=== PATIENT | female | born 1980 | race Caucasian/White ===

== ENCOUNTER 2019-12-25 16:02 | Emergency (ER) | payer OTHER ==
[2019-12-25 16:07] VITALS: RESP 18
[2019-12-25 17:44] LABS: Appearance,Urine Clear (Clear); Bacteria,Urine Occasional /hpf; Bilirubin,Urine Negative (Negative); Blood,Urine Negative (Negative); Color,Urine Yellow; Glucose,Urine (UA) Negative (Negative); Ketones,Urine Negative (Negative); Leukocyte Esterase,Urine Large (Negative); Mucus,Urine Few /hpf; Nitrite,Urine Negative (Negative); Protein,Urine Trace (Negative); RBC,Urine 1 /hpf (0-5); Specific Gravity,Urine 1.013 (1.001-1.035); Squamous Epithelial Cell,Urine 5 /hpf (0-4); WBC,Urine 3 /hpf (0-5)
--- NOTE | 2019-12-25 18:08 | ED ---
Fever HPI - General Chief Complaint: Fever Stated Complaint: fever Time Seen by Provider: 12/25/19 16:46 Source: patient Mode of arrival: ambulatory Limitations: no limitations - History of Present Illness Initial Comments: Patient is a 39-year-old female, currently 34 weeks , presenting to the emergency Department with complaints of a fever as well as diarrhea x 1 day. Patient states she noticed her fever last night that ran 99 and then 100. Patient did take Tylenol which the fever did respond. Patient states she woke up this morning and started having diarrhea. Patient did call her VOCATIONAL HORTICULTURE INSTRUCTOR who is out of [facility] and they recommended her coming into the ER to get tested for Covid. Patient denies any abdominal pain, vaginal discharge. Her has been uncomplicated thus far. She is . Patient denies any chest pain, shortness of breath, abdominal pain, dysuria. She has no other complaints at this time. Upon arrival to the ER, her vital signs are stable, afebrile. Patient did take Tylenol 2 hours prior to arrival. - Related Data Home Medications Medication Instructions Recorded Confirmed Albuterol Inhaler (Mhu) [Ventolin 2 puff INHALATION Q6HR PRN 05/14/14 05/14/14 Inhaler] Benzonatate [Tessalon Perle] 100 mg PO TID 05/14/14 05/14/14 Cyanocobalamin [Vitamin B-12] 500 mcg PO DAILY@1200 05/14/14 05/14/14 Dicyclomine [Bentyl] 20 mg PO QID 05/14/14 05/14/14 Doxycycline Hyclate 100 mg PO BID 05/14/14 05/14/14 HYDROcodone/APAP 7.5-325MG [[place] 1 each PO Q4H PRN 05/14/14 05/14/14 7.5] Hydrocodone/Acetaminophen [[place] 1 each PO Q6HR PRN 05/14/14 05/14/14 5-325] Hyoscyamine Sulfate [Levsin] 0.125 mg PO DAILY 05/14/14 05/14/14 LORazepam [Ativan] 1 mg PO TID PRN 05/14/14 05/14/14 Multivitamins, Thera [Multivitamin] 1 each PO DAILY@1200 05/14/14 05/14/14 Nystatin 100,000 Unit/ml Susp 5 ml PO QID 05/14/14 05/14/14 [Mycostatin Oral Susp] Ondansetron Odt [Zofran ODT] 4 mg PO Q8HR PRN 05/14/14 05/14/14 Potassium Chloride [Klor-Con 8] 8 meq PO DAILY 05/14/14 05/14/14 Prochlorperazine [Compazine] 10 mg PO Q8H 05/14/14 05/14/14 Ranitidine HCl [Zantac] 150 mg PO HS 05/14/14 05/14/14 predniSONE 10 mg PO DAILY 05/14/14 05/14/14 Previous Rx's Medication Instructions Recorded Hydrocodone/Acetaminophen [[place] 1 each PO Q4HR PRN #10 tab 05/14/14 5-325] Tamsulosin HCl [Flomax] 0.4 mg PO DAILY #10 cap 05/14/14 Cephalexin [Keflex] 500 mg PO BID 3 Days #6 cap 12/25/19 Allergies Allergy/AdvReac Type Severity Reaction Status Date / Time NSAIDS (Non-Steroidal Allergy Swelling Verified 12/25/19 16:07 Anti-Inflamma Review of Systems ROS Statement: Those systems with pertinent positive or pertinent negative responses have been documented in the HPI. ROS Other: All systems not noted in ROS Statement are negative. Past Medical History Additional Past Medical History / Comment(s): ulcerative colitis, chorn's History of Any Multi-Drug Resistant Organisms: None Reported Past Surgical History: Adenoidectomy, Section, Cholecystectomy, Tonsillectomy Past Psychological History: No Psychological Hx Reported Smoking Status: Current every day smoker Past Alcohol Use History: None Reported Past Drug Use History: None Reported General Exam - General Exam Comments Initial Comments: GENERAL: Well-appearing, well-nourished and in no acute distress. HEAD: Atraumatic, normocephalic. EYES: Pupils equal round and reactive to light, extraocular movements intact, sclera anicteric, conjunctiva are normal. ENT: TMs normal, nares patent, oropharynx clear without exudates. Moist mucous membranes. NECK: Normal range of motion, supple without lymphadenopathy or JVD. LUNGS: Breath sounds clear to auscultation bilaterally and equal. No wheezes rales or rhonchi. HEART: Regular rate and rhythm without murmurs, rubs or gallops. ABDOMEN: Soft, nontender, normoactive bowel sounds. No guarding, no rebound. : Deferred EXTREMITIES: Normal range of motion, no pitting or edema. No clubbing or cyanosis. NEUROLOGICAL: Cranial nerves II through XII grossly intact. Normal speech, normal gait. PSYCH: Normal mood, normal affect. SKIN: Warm, Dry, normal turgor, no rashes or lesions noted. Limitations: no limitations Course Vital Signs 12/25/19 12/25/19 16:05 18:30 Temperature 98.2 F 98.6 F Pulse Rate 102 H 94 Respiratory 18 18 Rate Blood Pressure 117/74 113/66 O2 Sat by Pulse 95 98 Oximetry Medical Decision Making - Medical Decision Making Patient is a 39-year-old female here for fever and diarrhea 1 day. She is 34 weeks , on-call. Thus far. Her exam is unremarkable. Patient's urine was tested and shows very mild bacteria. Patient was tested for Covid and is pending at this time. I discussed with patient her asymptomatic bacteremia and she'll be started on Keflex. Patient is agreement with this plan of care. She may continue with Tylenol as needed for fevers. Patient is stable for discharge and she is in agreement this plan of care. Return parameters were discussed with the patient she verbalized understanding. Case discussed with Dr. Ponce. - Lab Data Lab Results 12/25/19 Range/Units 17:18 Urine Color Yellow Urine Appearance Clear (Clear) Urine pH 7.0 (5.0-8.0) Ur Specific [place] 1.013 (1.001-1.035) Urine Protein Trace H (Negative) Urine Glucose (UA) Negative (Negative) Urine Ketones Negative (Negative) Urine Blood Negative (Negative) Urine Nitrite Negative (Negative) Urine Bilirubin Negative (Negative) Urine Urobilinogen 2.0 (<2.0) mg/dL Ur Leukocyte Esterase Large H (Negative) Urine RBC 1 (0-5) /hpf Urine WBC 3 (0-5) /hpf Ur Squamous Epith Cells 5 H (0-4) /hpf Urine Bacteria Occasional H (None) /hpf Urine Mucus Few H (None) /hpf Disposition Clinical Impression: Fever, Asymptomatic bacteriuria during Disposition: HOME SELF-CARE Condition: Stable Instructions (If sedation given, give patient instructions): Fever in Adults (ED) Additional Instructions: Please return to the Emergency Department if symptoms worsen or any other concerns. Take antibiotic as prescribed. Follow-up with VOCATIONAL HORTICULTURE INSTRUCTOR as necessary. Prescriptions: Cephalexin [Keflex] 500 mg PO BID 3 Days #6 cap Is patient prescribed a controlled substance at d/c from ED?: No Referrals: Charly Villasenor MD [Primary Care Provider] - 1-2 days
[2019-12-25 18:30] VITALS: BP 113/66; PULSE 94; TEMP 98.6
== END 2019-12-25 18:30 | disposition home or self-care (01) ==
LOC: EC 16:02
DX: O26.893 Other specified pregnancy related conditions, third trimester (principal); R82.71 Bacteriuria; O99.89 Other specified diseases and conditions complicating pregnancy, childbirth and the puerperium; R50.9 Fever, unspecified; R19.7 Diarrhea, unspecified; O99.333 Smoking (tobacco) complicating pregnancy, third trimester; F17.200 Nicotine dependence, unspecified, uncomplicated; Z3A.34 34 weeks gestation of pregnancy; Z20.828 Contact with and (suspected) exposure to other viral communicable diseases; Z79.51 Long term (current) use of inhaled steroids; Z79.899 Other long term (current) drug therapy; Z88.6 Allergy status to analgesic agent
CPT/HCPCS: 81001; 87635; 99283

== ENCOUNTER 2023-10-18 19:29 | Emergency (ER) | payer MEDICARE, OTHER ==
--- NOTE | 2023-10-18 20:09 | ED ---
General Adult HPI - General Chief complaint: Nausea/Vomiting/Diarrhea Stated complaint: abdominal pain Time Seen by Provider: 10/18/23 19:32 Source: patient Mode of arrival: EMS Limitations: no limitations - History of Present Illness Initial comments: 43-year-old female with a past medical history significant for Crohn's disease presenting to the ED with a chief complaint of nausea, vomiting, diarrhea onset 3 days ago. Also does note some associated generalized abdominal pain. Reports secondary to the symptoms she has been unable to take her usual medications. No blood in the stool. No changes in urinary habits. Associated chills but no fever. No changes in urinary habits. No chest pain or shortness of breath. No other complaints at this time. - Related Data Home Medications Medication Instructions Recorded Confirmed Albuterol Inhaler [Ventolin 2 puff INHALATION Q6HR PRN 05/14/14 05/14/14 Inhaler] Benzonatate [Tessalon Perle] 100 mg PO TID 05/14/14 05/14/14 Cyanocobalamin [Vitamin B-12] 500 mcg PO DAILY@1200 05/14/14 05/14/14 Dicyclomine [Bentyl] 20 mg PO QID 05/14/14 05/14/14 Doxycycline Hyclate 100 mg PO BID 05/14/14 05/14/14 HYDROcodone/APAP 7.5-325MG [[place] 1 each PO Q4H PRN 05/14/14 05/14/14 7.5] Hydrocodone/Acetaminophen [[place] 1 each PO Q6HR PRN 05/14/14 05/14/14 5-325] Hyoscyamine Sulfate [Levsin] 0.125 mg PO DAILY 05/14/14 05/14/14 LORazepam [Ativan] 1 mg PO TID PRN 05/14/14 05/14/14 Multivitamins, Thera [Multivitamin] 1 each PO DAILY@1200 05/14/14 05/14/14 Nystatin 100,000 Unit/ml Susp 5 ml PO QID 05/14/14 05/14/14 [Mycostatin Oral Susp] Ondansetron Odt [Zofran ODT] 4 mg PO Q8HR PRN 05/14/14 05/14/14 Potassium Chloride [Klor-Con 8] 8 meq PO DAILY 05/14/14 05/14/14 Prochlorperazine [Compazine] 10 mg PO Q8H 05/14/14 05/14/14 Ranitidine HCl [Zantac] 150 mg PO HS 05/14/14 05/14/14 predniSONE 10 mg PO DAILY 05/14/14 05/14/14 Previous Rx's Medication Instructions Recorded Hydrocodone/Acetaminophen [[place] 1 each PO Q4HR PRN #10 tab 05/14/14 5-325] Tamsulosin HCl [Flomax] 0.4 mg PO DAILY #10 cap 05/14/14 Cephalexin [Keflex] 500 mg PO BID 3 Days #6 cap 12/25/19 Allergies Allergy/AdvReac Type Severity Reaction Status Date / Time NSAIDS (Non-Steroidal Allergy Swelling Verified 10/18/23 19:36 Anti-Inflamma Review of Systems ROS Statement: Those systems with pertinent positive or pertinent negative responses have been documented in the HPI. ROS Other: All systems not noted in ROS Statement are negative. Past Medical History Additional Past Medical History / Comment(s): ulcerative colitis, chorn's History of Any Multi-Drug Resistant Organisms: None Reported Past Surgical History: Adenoidectomy, Section, Cholecystectomy, Tonsillectomy Past Psychological History: No Psychological Hx Reported Past Alcohol Use History: None Reported Past Drug Use History: None Reported General Exam Limitations: no limitations General appearance: alert, in no apparent distress Eye exam: Present: normal appearance Neck exam: Present: normal inspection Respiratory exam: Present: normal lung sounds bilaterally Cardiovascular Exam: Present: regular rate, normal rhythm GI/Abdominal exam: Present: soft (Diffuse abdominal tenderness to palpation. No rebound guarding or rigidity.) Back exam: Present: normal inspection Neurological exam: Present: alert, oriented X3 Skin exam: Present: warm, dry Course Vital Signs 10/18/23 19:35 Temperature 98.4 F Pulse Rate 76 Respiratory 18 Rate Blood Pressure 239/139 O2 Sat by Pulse 100 Oximetry Medical Decision Making - Medical Decision Making Was pt. sent in by a medical professional or institution (, PA, CALIBRATION SPECIALIST, urgent care, hospital, or care home...) When possible be specific @ -No Did you speak to anyone other than the patient for history (EMS, parent, family, police, friend...)? What history was obtained from this source @ -No Did you review nursing and triage notes (agree or disagree)? Why? @ -I reviewed and agree with nursing and triage notes Were old charts reviewed (outside hosp., previous admission, EMS record, old EKG, old radiological studies, urgent care reports/EKG's, care home records)? Report findings @ -No old charts were reviewed Differential Diagnosis (chest pain, altered mental status, abdominal pain women, abdominal pain men, vaginal bleeding, weakness, fever, dyspnea, syncope, headache, dizziness, GI bleed, back pain, seizure, CVA, palpatations, mental health, musculoskeletal)? @ -Differential Abdominal Pain Women: Appendicitis, Cholecystitis, diverticulosis, ischemic bowel, pancreatitis, hepatitis, UTI, gastroenteritis, AAA, incarcerated hernia, bowel obstruction, constipation, inflammatory bowel, hepatitis, peptic ulcer disease, splenic infarction, perforated viscus, vulvitis, ovarian torsion, PID, kidney stone, placenta abruption, this is not meant to be an all-inclusive list EKG interpreted by me (3pts min.). @ -None X-rays interpreted by me (1pt min.). @ -None done CT interpreted by me (1pt min.). @ -CT abdomen pelvis interpreted me showing pancolonic mild circumferential mu ral thickening without focal findings. Also prominent urinary bladder distention. U/S interpreted by me (1pt. min.). @ -None done What testing was considered but not performed or refused? (CT, X-rays, U/S, labs)? Why? @ -None What meds were considered but not given or refused? Why? @ -None Did you discuss the management of the patient with other professionals (professionals i.e. , PA, CALIBRATION SPECIALIST, lab, RT, psych nurse, oncology social work, gwot ia/ilo intelligence support, teacher, attendance officer, shoe caser)? Give summary @ -No Was smoking cessation discussed for >3mins.? @ -No Was critical care preformed (if so, how long)? @ -No Were there social determinants of health that impacted care today? How? (Homel essness, low income, unemployed, alcoholism, drug addiction, transportation, low edu. Level, literacy, decrease access to med. care, senior living, rehab)? @ -No Was there de-escalation of care discussed even if they declined (Discuss DNR or withdrawal of care, Hospice)? DNR status @ -No What co-morbidities impacted this encounter? (DM, HTN, Smoking, COPD, CAD, Cancer, CVA, ARF, Chemo, Hep., AIDS, mental health diagnosis, sleep apnea, morbid obesity)? @ -Chron's Was patient admitted / discharged? Hospital course, mention meds given and route, prescriptions, significant lab abnormalities, going to OR and other pertinent info. @ -Discharge 43-year-old female with past medical history significant for Crohn's presenting to the ED with complaints of nausea, vomiting, diarrhea, abdominal pain for the past 3 days. Reports secondary symptoms has been unable to tolerate her medications at home and reports she is also aware that of her Zofran. Laboratory studies reviewed. CBC is shows a elevated white blood cell count 13.9, elevated neutrophils at 11.6. Chemistry panel largely unremarkable. Troponin undetectable. UA shows no significant evidence of infection. CT did show pancolonic mild [id number] male thickening without focal findings. Also was a finding of cystic changes especially of the right ovary measuring 7 cm and left ovary measuring 3.5 cm. Discussed these findings with patient. She verbalized she will follow-up with her PEDIATRIC SURGEON. Patient provided analgesia and antiemetics here in the ED with significant improvement of symptoms. At this time vital signs stable afebrile. Discharged home in stable condition with prescriptions for Zofran. Discussed return precautions with patient who verbalized agreement. Undiagnosed new problem with uncertain prognosis? @ -No Drug Therapy requiring intensive monitoring for toxicity (Heparin, Nitro, Insulin, Cardizem)? @ -No Were any procedures done? @ -No Diagnosis/symptom? @ -Abdominal pain, N/V/D Acute, or Chronic, or Acute on Chronic? @ -Acute Uncomplicated (without systemic symptoms) or Complicated (systemic symptoms)? @ -Uncomplicated Side effects of treatment? @ -No Exacerbation, Progression, or Severe Exacerbation? @ -No Poses a threat to life or bodily function? How? (Chest pain, [place], [place], pneumonia, PE, COPD, DKA, ARF, appy, cholecystitis, CVA, Diverticulitis, Homicidal, Suicidal, threat to staff... and all critical care pts) @ -No - Lab Data Result diagrams: 10/18/23 20:08 10/18/23 20:08 Lab Results 03/07/24 03/07/24 03/07/24 Range/Units 19:30 20:08 20:08 WBC 13.9 H (3.8-10.6) k/uL RBC 5.01 (3.80-5.40) m/uL Hgb 15.8 (11.4-16.0) gm/dL Hct 46.1 H (34.0-46.0) % MCV 91.9 (80.0-100.0) fL MCH 31.5 (25.0-35.0) pg MCHC 34.2 (31.0-37.0) g/dL RDW 14.6 (11.5-15.5) % Plt Count 414 (150-450) k/uL MPV 8.1 Neutrophils % 83 % Lymphocytes % 8 % Monocytes % 5 % Eosinophils % 2 % Basophils % 1 % Neutrophils # 11.6 H (1.3-7.7) k/uL Lymphocytes # 1.0 (1.0-4.8) k/uL Monocytes # 0.7 (0-1.0) k/uL Eosinophils # 0.3 (0-0.7) k/uL Basophils # 0.1 (0-0.2) k/uL PT (10.0-12.5) sec INR (<1.2) APTT (22.0-30.0) sec Sodium 135 L (137-145) mmol/L Potassium 3.7 (3.5-5.1) mmol/L Chloride 110 H (98-107) mmol/L Carbon Dioxide 14 L (22-30) mmol/L Anion Gap 11 mmol/L BUN 9 (7-17) mg/dL Creatinine 0.39 L (0.52-1.04) mg/dL Est GFR (CKD-EPI)AfAm >90 (>60 ml/min/1.73 sqM) Est GFR (CKD-EPI)NonAf >90 (>60 ml/min/1.73 sqM) Glucose 116 H (74-99) mg/dL Calcium 9.1 (8.4-10.2) mg/dL Total Bilirubin 0.5 (0.2-1.3) mg/dL AST 31 (14-36) U/L ALT 25 (4-34) U/L Alkaline Phosphatase 79 (38-126) U/L Troponin I (0.000-0.034) ng/mL Total Protein 7.5 (6.3-8.2) g/dL Albumin 4.3 (3.5-5.0) g/dL Amylase 46 (30-110) U/L Lipase 28 (23-300) U/L Urine Color Colorless Urine Appearance Clear (Clear) Urine pH 7.0 (5.0-8.0) Ur Specific [place] 1.018 (1.001-1.035) Urine Protein Negative (Negative) Urine Glucose (UA) Negative (Negative) Urine Ketones Negative (Negative) Urine Blood Negative (Negative) Urine Nitrite Negative (Negative) Urine Bilirubin Negative (Negative) Urine Urobilinogen <2.0 (<2.0) mg/dL Ur Leukocyte Esterase Negative (Negative) Influenza Type A (PCR) (Not Detectd) Influenza Type B (PCR) (Not Detectd) RSV (PCR) (Not Detectd) SARS-CoV-2 (PCR) (Not Detectd) 10/18/23 10/18/23 10/18/23 Range/Units 20:08 20:08 21:05 WBC (3.8-10.6) k/uL RBC (3.80-5.40) m/uL Hgb (11.4-16.0) gm/dL Hct (34.0-46.0) % MCV (80.0-100.0) fL MCH (25.0-35.0) pg MCHC (31.0-37.0) g/dL RDW (11.5-15.5) % Plt Count (150-450) k/uL MPV Neutrophils % % Lymphocytes % % Monocytes % % Eosinophils % % Basophils % % Neutrophils # (1.3-7.7) k/uL Lymphocytes # (1.0-4.8) k/uL Monocytes # (0-1.0) k/uL Eosinophils # (0-0.7) k/uL Basophils # (0-0.2) k/uL PT 9.7 L (10.0-12.5) sec INR 0.9 (<1.2) APTT 20.8 L (22.0-30.0) sec Sodium (137-145) mmol/L Potassium (3.5-5.1) mmol/L Chloride (98-107) mmol/L Carbon Dioxide (22-30) mmol/L Anion Gap mmol/L BUN (7-17) mg/dL Creatinine (0.52-1.04) mg/dL Est GFR (CKD-EPI)AfAm (>60 ml/min/1.73 sqM) Est GFR (CKD-EPI)NonAf (>60 ml/min/1.73 sqM) Glucose (74-99) mg/dL Calcium (8.4-10.2) mg/dL Total Bilirubin (0.2-1.3) mg/dL AST (14-36) U/L ALT (4-34) U/L Alkaline Phosphatase (38-126) U/L Troponin I <0.012 (0.000-0.034) ng/mL Total Protein (6.3-8.2) g/dL Albumin (3.5-5.0) g/dL Amylase (30-110) U/L Lipase (23-300) U/L Urine Color Urine Appearance (Clear) Urine pH (5.0-8.0) Ur Specific [place] (1.001-1.035) Urine Protein (Negative) Urine Glucose (UA) (Negative) Urine Ketones (Negative) Urine Blood (Negative) Urine Nitrite (Negative) Urine Bilirubin (Negative) Urine Urobilinogen (<2.0) mg/dL Ur Leukocyte Esterase (Negative) Influenza Type A (PCR) Not Detected (Not Detectd) Influenza Type B (PCR) Not Detected (Not Detectd) RSV (PCR) Not Detected (Not Detectd) SARS-CoV-2 (PCR) Not Detected (Not Detectd) Disposition Clinical Impression: Abdominal pain Disposition: HOME SELF-CARE Condition: Good Instructions (If sedation given, give patient instructions): Acute Nausea and Vomiting (ED), Abdominal Pain (ED) Additional Instructions: Please return to the Emergency Department if symptoms worsen or any other concerns. Please follow-up with your PCP. Is patient prescribed a controlled substance at d/c from ED?: No Referrals: Charly Villasenor MD [Primary Care Provider] - 1-2 days Time of Disposition: 23:25
[2023-10-18] MEDS: ONDANSETRON 4 MG/2 ML VIAL IVP STA (20:24)
[2023-10-18] MEDS: SODIUM CHLORIDE 0.9% 1,000 ML IV STA (20:25)
[2023-10-18 20:30] VITALS: BP 239/139; PULSE 76; RESP 18; TEMP 98.4
[2023-10-18 20:37] LABS: ALT 25 U/L (4-34); AST 31 U/L (14-36); African American GFR (CKD) >90 (>60 ml/min/1.73 sqM); Albumin 4.3 g/dL (3.5-5.0); Alkaline Phosphatase 79 U/L (38-126); Amylase 46 U/L (30-110); Anion Gap 11 mmol/L; Blood Urea Nitrogen 9 mg/dL (7-17); Calcium 9.1 mg/dL (8.4-10.2); Carbon Dioxide 14 mmol/L (22-30); Chloride 110 mmol/L (98-107); Glucose 116 mg/dL (74-99); Lipase 28 U/L (23-300); Non-African American GFR(CKD) >90 (>60 ml/min/1.73 sqM); Potassium 3.7 mmol/L (3.5-5.1); Sodium 135 mmol/L (137-145); Total Bilirubin 0.5 mg/dL (0.2-1.3); Total Protein 7.5 g/dL (6.3-8.2)
[2023-10-18] MEDS: MORPHINE SULFATE 4 MG/ML SYRINGE IVP STA ×2 (20:39→23:41)
[2023-10-18 20:40] LABS: Basophils # (A) 0.1 k/uL (0-0.2); Basophils % (A) 1 %; Eosinophils # (A) 0.3 k/uL (0-0.7); Eosinophils % (A) 2 %; HCT 46.1 % (34.0-46.0); HGB 15.8 gm/dL (11.4-16.0); Lymphocytes % (A) 8 %; MCH 31.5 pg (25.0-35.0); MCHC 34.2 g/dL (31.0-37.0); MCV 91.9 fL (80.0-100.0); Mean Platelet Volume 8.1; Monocytes # (A) 0.7 k/uL (0-1.0); Monocytes % (A) 5 %; Neutrophils # (A) 11.6 k/uL (1.3-7.7); Neutrophils % (A) 83 %; Platelet Count 414 k/uL (150-450); RBC 5.01 m/uL (3.80-5.40); RDW 14.6 % (11.5-15.5); WBC 13.9 k/uL (3.8-10.6)
[2023-10-18 20:43] LABS: INR 0.9 (<1.2); Prothrombin Time 9.7 sec (10.0-12.5)
[2023-10-18 20:50] LABS: Partial Thromboplastin Time 20.8 sec (22.0-30.0)
--- NOTE | 2023-10-18 22:08 | CT ---
EXAMINATION TYPE: CT ABDOMEN PELVIS W CON DATE OF EXAM: 10/18/2023 HISTORY: lower abdominal pain, hx of chrohn's. CT DLP: 733.2mGycm Automated Exposure Control for Dose Reduction was Utilized. CONTRAST: CT scan of the abdomen and pelvis is performed with IV Contrast, patient injected with 100 ml mL of Isovue 300. COMPARISON: None on PACS. FINDINGS: LUNG BASES: No significant abnormality is appreciated. LIVER/GB: No significant abnormality is appreciated. PANCREAS: No significant abnormality is seen. SPLEEN: No significant abnormality is seen. ADRENALS: No significant abnormality is seen. KIDNEYS: No acute findings. BOWEL: Oral contrast opacifies the distal ileum and colon. The colon shows mild circumferential joel h mural thickening which may represent minimal inflammatory changes. No mesocolon or mesenteric infla mmatory/edematous changes. No small bowel bowel dilation. PERITONEAL CAVITY: No fluid or pneumoperitoneum. PELVIC VISCERA: The urinary bladder is mildly distended. Uterus is anteverted without flexion, with normal appearance. Right ovary shows cystic changes, measuring up to 7.0 cm. Left ovary shows cystic changes measuring u p to 3.5 cm. LYMPH NODES: No greater than 1cm abdominal or pelvic lymph nodes are appreciated. OSSEOUS STRUCTURES: No significant abnormality is seen. OTHER: No abdominal aortic aneurysm. No acute vascular process.. IMPRESSION: Pancolonic mild circumferential mural thickening without focal findings. Bilateral ovarian findings for which 2 week or 6 week follow-up pelvic Doppler ultrasound correlation is recommended, to ensure benignity. Prominent urinary bladder distention.
[2023-10-18] MEDS: DICYCLOMINE 20 MG TAB PO STA (22:44)
[2023-10-18 23:08] LABS: Appearance,Urine Clear (Clear); Bilirubin,Urine Negative (Negative); Blood,Urine Negative (Negative); Color,Urine Colorless; Glucose,Urine (UA) Negative (Negative); Ketones,Urine Negative (Negative); Leukocyte Esterase,Urine Negative (Negative); Nitrite,Urine Negative (Negative); Protein,Urine Negative (Negative); Specific Gravity,Urine 1.018 (1.001-1.035); Urobilinogen,Urine <2.0 mg/dL (<2.0)
[2023-10-18] MEDS: ONDANSETRON 4 MG ODT STARTER PACK 2 TAB BTL PO STA (23:41)
== END 2023-10-19 00:24 | disposition home or self-care (01) ==
LOC: EC 19:29
DX: K50.90 Crohn's disease, unspecified, without complications (principal); Z88.6 Allergy status to analgesic agent; Z79.52 Long term (current) use of systemic steroids; Z90.49 Acquired absence of other specified parts of digestive tract; Z20.822 Contact with and (suspected) exposure to COVID-19
CPT/HCPCS: 36415; 93005; 80053; 82150; 83690; 84484; 85025; 85610; 85730; 81003; 87636; 74177; 99285; 96374; 96375; 96376; 96361; J2270; J2405; S0119; Q9967

== ENCOUNTER 2024-06-10 22:22 | Emergency (ER) | payer OTHER ==
[2024-06-10 22:29] VITALS: TEMP 97.8
--- NOTE | 2024-06-10 22:40 | ED ---
Chest Pain HPI - General Chief Complaint: Chest Pain Stated Complaint: Chest Pain,Hypertension Time Seen by Provider: 06/10/24 22:37 Source: patient Mode of arrival: ambulatory - History of Present Illness Initial Comments: This patient is a 44-year-old woman who presents to have evaluation for chest pain. The symptoms started around 5 tonight. She was at rest. She has also had a little bit of nausea. Patient states she became concerned because her blood pressure has been high for some time. She states that her medication was adjusted but does not seem to be controlling this. MD Complaint: chest pain Onset/Timin -: hour(s) Onset: during rest Pain Location: substernal, left chest, right chest Pain Radiation: none Severity: mild Quality: heaviness Consistency: constant Improves With: nothing Worsens With: nothing Anginal Symptoms: nausea Treatments Prior to Arrival: none - Related Data Home Medications Medication Instructions Recorded Confirmed Dicyclomine [Bentyl] 10 mg PO BID 06/13/24 06/13/24 Mesalamine [Pentasa] 1 dose PO DIRECTED 06/13/24 06/13/24 Ondansetron [Zofran] 4 mg PO Q12HR PRN 06/13/24 06/13/24 Questran (Unknown) 1 dose PO DIRECTED PRN 06/13/24 06/13/24 Previous Rx's Medication Instructions Recorded hydroCHLOROthiazide 25 mg PO DAILY #20 tablet 06/11/24 Acetaminophen Tab [Tylenol] 650 mg PO Q6HR PRN tab 06/14/24 Albuterol Sulfate [Albuterol 1 puff PO Q4-6H #8.5 gm 06/14/24 Sulfate Hfa] Budesonide/Formoterol Fumarate 1 puff INHALATION BID #10.2 gm 06/14/24 [Symbicort 80-4.5 Mcg Inhaler] Lisinopril-Hctz 20-12.5 mg 1 tab PO BID #60 tab 06/14/24 [Zestoretic 20-12.5] Loratadine [Claritin] 5 mg PO Q12HR #10 tab 06/14/24 Nicotine 14Mg/24Hr Patch [Habitrol] 1 patch TRANSDERM DAILY #30 patch 06/14/24 Allergies Allergy/AdvReac Type Severity Reaction Status Date / Time NSAIDS (Non-Steroidal Allergy Swelling Verified 06/13/24 08:28 Anti-Inflamma Review of Systems ROS Statement: Those systems with pertinent positive or pertinent negative responses have been documented in the HPI. ROS Other: All systems not noted in ROS Statement are negative. Constitutional: Denies: fever, weakness Respiratory: Denies: cough, dyspnea Cardiovascular: Reports: chest pain. Denies: palpitations, orthopnea, edema, syncope Gastrointestinal: Reports: nausea. Denies: abdominal pain, vomiting, diarrhea Genitourinary: Denies: dysuria, hematuria Musculoskeletal: Denies: back pain Skin: Denies: rash Neurological: Denies: headache, weakness, numbness EKG Findings - EKG Results: EKG: interpreted by ERMD, sinus rhythm (Rate 70 bpm), normal axis - Blocks, Hayden, Hypertrophy, ST Abn: AV and intraventricular conduction: right bundle branch block (fixed/intermittent, complete/incomplete) (Incomplete) Past Medical History Past Medical History: Hypertension Additional Past Medical History / Comment(s): ulcerative colitis, chorn's History of Any Multi-Drug Resistant Organisms: None Reported Past Surgical History: Adenoidectomy, Section, Cholecystectomy, Orthopedic Surgery, Tonsillectomy Past Psychological History: Anxiety Smoking Status: Current every day smoker Past Alcohol Use History: Rare Past Drug Use History: None Reported General Exam General appearance: alert, in no apparent distress Head exam: Present: atraumatic, normocephalic Eye exam: Present: normal appearance. Absent: scleral icterus, conjunctival injection ENT exam: Present: normal oropharynx Neck exam: Present: normal inspection Respiratory exam: Present: normal lung sounds bilaterally. Absent: respiratory distress, wheezes, rales, rhonchi, stridor, accessory muscle use Cardiovascular Exam: Present: regular rate, normal rhythm, normal heart sounds. Absent: systolic murmur, diastolic murmur, rubs, gallop GI/Abdominal exam: Present: soft. Absent: distended, tenderness, guarding, rebound, rigid, mass Extremities exam: Present: normal inspection, normal capillary refill. Absent: pedal edema, calf tenderness Back exam: Present: normal inspection. Absent: CVA tenderness (R), CVA tenderness (L) Neurological exam: Present: alert Skin exam: Present: warm, dry, intact, normal color. Absent: rash Course Vital Signs 06/10/24 06/10/24 06/10/24 22:25 23:22 23:45 Temperature 97.8 F Pulse Rate 92 73 69 Respiratory 22 19 20 Rate Blood Pressure 193/92 185/105 171/102 O2 Sat by Pulse 96 99 96 Oximetry 06/11/24 06/11/24 00:18 01:10 Temperature 97.8 F Pulse Rate 81 71 Respiratory 22 20 Rate Blood Pressure 156/95 151/75 O2 Sat by Pulse 99 96 Oximetry Chest Pain MDM - MDM The patient had chest x-ray that I interpreted as negative for acute infiltrate, pneumothorax, congestive heart failure. Was pt. sent in by a medical professional or institution (, PA, SENIOR JAVASCRIPT ENGINEER, urgent care, hospital, or shelter...) When possible be specific @ - Did you speak to anyone other than the patient for history (EMS, parent, family, police, friend...)? What history was obtained from this source @ -[No] Did you review nursing and triage notes (agree or disagree)? Why? @ -[I reviewed and agree with nursing and triage notes] Were old charts reviewed (outside hosp., previous admission, EMS record, old EKG, old radiological studies, urgent care reports/EKG's, shelter records)? Report findings @ -[No old charts were reviewed] Differential Diagnosis (chest pain, altered mental status, abdominal pain women, abdominal pain men, vaginal bleeding, weakness, fever, dyspnea, syncope, headache, dizziness, GI bleed, back pain, seizure, CVA, palpatations, mental health, musculoskeletal)? @ -[Differential Chest Pain: Stable Angina, Unstable Angina, STEMI, NSTEMI Aortic Dissection, Pneumothorax, Musculoskeletal, Esophageal Spasm GERD, Cholecystitis, Pancreatitis, Zoster, this is not meant to be an all-inclusive list. EKG interpreted by me (3pts min.). @ -[Interpreted I interpreted as above as above] X-rays interpreted by me (1pt min.). @ -[Interpreted as above CT interpreted by me (1pt min.). @ -[None done] U/S interpreted by me (1pt. min.). @ -[None done] What testing was considered but not performed or refused? (CT, X-rays, U/S, labs)? Why? @ -[None] What meds were considered but not given or refused? Why? @ -[None] Did you discuss the management of the patient with other professionals (professionals i.e. , PA, SENIOR JAVASCRIPT ENGINEER, lab, RT, psych nurse, social staff worker, relocation manager, teacher, special police officer, case supervisor)? Give summary @ -[No] Was smoking cessation discussed for >3mins.? @ -[No] Was critical care preformed (if so, how long)? @ -[No] Were there social determinants of health that impacted care today? How? (Homelessness, low income, unemployed, alcoholism, drug addiction, transportation, low edu. Level, literacy, decrease access to med. care, detention, rehab)? @ -[No] Was there de-escalation of care discussed even if they declined (Discuss DNR or withdrawal of care, Hospice)? DNR status @ -[No] What co-morbidities impacted this encounter? (DM, HTN, Smoking, COPD, CAD, Cancer, CVA, ARF, Chemo, Hep., AIDS, mental health diagnosis, sleep apnea, morbid obesity)? @ -[hypertention Was patient admitted / discharged? Hospital course, mention meds given and route, prescriptions, significant lab abnormalities, going to OR and other pertinent info. @ -[Patient is 44-year-old woman presenting evaluation of chest pain the patient's workup is unremarkable. She feels well and would like to continue as outpatient. Discussed follow-up with cardiology and also discussed return parameters Undiagnosed new problem with uncertain prognosis? @ -[No] Drug Therapy requiring intensive monitoring for toxicity (Heparin, Nitro, Insulin, Cardizem)? @ -[No] Were any procedures done? @ -[No] Diagnosis/symptom? @ -[Acute chest pain Acute on chronic hypertension Acute, or Chronic, or Acute on Chronic? @ -[default] Uncomplicated (without systemic symptoms) or Complicated (systemic symptoms)? @ -[Uncomplicated Side effects of treatment? @ -[No] Exacerbation, Progression, or Severe Exacerbation? @ -[No] Poses a threat to life or bodily function? How? (Chest pain, [place], [place], pneumonia, PE, COPD, DKA, ARF, appy, cholecystitis, CVA, Diverticulitis, Homicidal, Suicidal, threat to staff... and all critical care pts) @ -[No] Disposition Clinical Impression: Hypertension Disposition: HOME SELF-CARE Condition: Good Instructions (If sedation given, give patient instructions): Hypertension (ED) Prescriptions: hydroCHLOROthiazide 25 mg PO DAILY #20 tablet Is patient prescribed a controlled substance at d/c from ED?: No Referrals: Charly Villasenor MD [Primary Care Provider] - 1-2 days
[2024-06-10] MEDS: hydroCHLOROthiazide 25 MG TAB PO STA (23:27)
[2024-06-10 23:31] LABS: Basophils # (A) 0.1 k/uL (0-0.2); Basophils % (A) 1 %; Eosinophils # (A) 0.3 k/uL (0-0.7); Eosinophils % (A) 3 %; HCT 43.8 % (34.0-46.0); HGB 14.2 gm/dL (11.4-16.0); Lymphocytes # (A) 2.6 k/uL (1.0-4.8); Lymphocytes % (A) 26 %; MCH 30.2 pg (25.0-35.0); MCHC 32.4 g/dL (31.0-37.0); MCV 93.4 fL (80.0-100.0); Mean Platelet Volume 7.2; Monocytes # (A) 0.9 k/uL (0-1.0); Monocytes % (A) 9 %; Neutrophils % (A) 59 %; Platelet Count 314 k/uL (150-450); RBC 4.69 m/uL (3.80-5.40); RDW 15.2 % (11.5-15.5); WBC 10.3 k/uL (3.8-10.6)
[2024-06-10 23:42] LABS: ALT 26 U/L (4-34); African American GFR (CKD) >90 (>60 ml/min/1.73 sqM); Anion Gap 3 mmol/L; Blood Urea Nitrogen 12 mg/dL (7-17); Calcium 8.8 mg/dL (8.4-10.2); Carbon Dioxide 21 mmol/L (22-30); Chloride 112 mmol/L (98-107); Glucose 92 mg/dL (74-99); Non-African American GFR(CKD) >90 (>60 ml/min/1.73 sqM); Sodium 136 mmol/L (137-145); Total Bilirubin 0.8 mg/dL (0.2-1.3)
--- NOTE | 2024-06-10 23:43 | XR ---
EXAMINATION TYPE: XR chest 2V DATE OF EXAM: 06/10/2024 COMPARISON: NONE HISTORY: Chest pain TECHNIQUE: Frontal and lateral views of the chest are obtained. FINDINGS: Overlying EKG leads are present. There is no focal air space opacity, pleural effusion, or pneumothorax seen. The cardiac silhouette size is within normal limits. The osseous structures are intact. IMPRESSION: No acute process. [facility], , 06/10/2024 11:41 PM
[2024-06-10 23:46] LABS: INR 0.9 (<1.2); Partial Thromboplastin Time 26.8 sec (22.0-30.0)
[2024-06-10 23:50] LABS: NT-Pro-B-Type Natriuretic Pept 404 pg/mL
[2024-06-10 23:51] LABS: AST 38 U/L (14-36); Albumin 3.8 g/dL (3.5-5.0); Alkaline Phosphatase 44 U/L (38-126); Magnesium 1.8 mg/dL (1.6-2.3); Potassium 4.5 mmol/L (3.5-5.1); Total Protein 6.7 g/dL (6.3-8.2)
[2024-06-11 01:11] VITALS: BP 151/75; PULSE 71; RESP 20
== END 2024-06-11 01:11 | disposition home or self-care (01) ==
LOC: EC 22:22
DX: I10 Essential (primary) hypertension (principal); F17.200 Nicotine dependence, unspecified, uncomplicated; Z88.6 Allergy status to analgesic agent; Z79.899 Other long term (current) drug therapy; Z90.49 Acquired absence of other specified parts of digestive tract; Z90.89 Acquired absence of other organs
CPT/HCPCS: 36415; 71046; 80053; 83735; 83880; 84484; 85025; 85610; 85730; 93005; 99285

== ENCOUNTER 2024-06-12 17:35 | Observation (INO) | payer OTHER ==
--- NOTE | 2024-06-12 18:23 | ED ---
General Adult HPI - General Chief complaint: Recheck/Abnormal Lab/Rx Stated complaint: Hypertension Time Seen by Provider: 06/12/24 17:42 Source: patient, EMS Mode of arrival: EMS Limitations: no limitations - History of Present Illness Initial comments: Patient is a 44-year-old female the past medical history of hypertension presenting today for hypertension, headache and chest pressure. Patient states that she was here seen 2 days ago for similar. States states that her lisinopril was switched to hydrochlorothiazide however her blood pressures co ntinue to run high. Last night she began having a pressure-like headache at the front of her head that radiated to the back. Gradually worsened and continued through today. Endorse associated nausea and emesis. Emesis is nonbloody nonbilious. Denies any new abdominal pain from her chronic secondary Crohn's disease. Endorses loose stools today but states she usually has loose stools. Denies any changes in vision, numbness, weakness, slurred speech or confusion. No fevers or chills. No neck stiffness. Endorses pressure across the front of her chest, does not radiate from the back. Does endorse low back pain stating she feels like she gets intermittent spasms from her hips upward throughout the day, does not radiate to the chest or abdomen. No KATHI. - Related Data Home Medications Medication Instructions Recorded Confirmed Albuterol Inhaler [Ventolin 2 puff INHALATION Q6HR PRN 05/14/14 05/14/14 Inhaler] Benzonatate [Tessalon Perle] 100 mg PO TID 05/14/14 05/14/14 Cyanocobalamin [Vitamin B-12] 500 mcg PO DAILY@1200 05/14/14 05/14/14 Dicyclomine [Bentyl] 20 mg PO QID 05/14/14 05/14/14 Doxycycline Hyclate 100 mg PO BID 05/14/14 05/14/14 HYDROcodone/APAP 7.5-325MG [[place] 1 each PO Q4H PRN 05/14/14 05/14/14 7.5] Hydrocodone/Acetaminophen [[place] 1 each PO Q6HR PRN 05/14/14 05/14/14 5-325] Hyoscyamine Sulfate [Levsin] 0.125 mg PO DAILY 05/14/14 05/14/14 LORazepam [Ativan] 1 mg PO TID PRN 05/14/14 05/14/14 Multivitamins, Thera [Multivitamin] 1 each PO DAILY@1200 05/14/14 05/14/14 Nystatin 100,000 Unit/ml Susp 5 ml PO QID 05/14/14 05/14/14 [Mycostatin Oral Susp] Ondansetron Odt [Zofran ODT] 4 mg PO Q8HR PRN 05/14/14 05/14/14 Potassium Chloride [Klor-Con 8] 8 meq PO DAILY 05/14/14 05/14/14 Prochlorperazine [Compazine] 10 mg PO Q8H 05/14/14 05/14/14 Ranitidine HCl [Zantac] 150 mg PO HS 05/14/14 05/14/14 predniSONE 10 mg PO DAILY 05/14/14 05/14/14 Previous Rx's Medication Instructions Recorded Hydrocodone/Acetaminophen [[place] 1 each PO Q4HR PRN #10 tab 05/14/14 5-325] Tamsulosin HCl [Flomax] 0.4 mg PO DAILY #10 cap 05/14/14 Cephalexin [Keflex] 500 mg PO BID 3 Days #6 cap 12/25/19 Ondansetron Odt [Zofran Odt] 4 mg PO Q8HR PRN #10 tab 10/18/23 hydroCHLOROthiazide 25 mg PO DAILY #20 tablet 06/11/24 Allergies Allergy/AdvReac Type Severity Reaction Status Date / Time NSAIDS (Non-Steroidal Allergy Swelling Verified 06/12/24 17:38 Anti-Inflamma Review of Systems ROS Statement: Those systems with pertinent positive or pertinent negative responses have been documented in the HPI. ROS Other: All systems not noted in ROS Statement are negative. Past Medical History Past Medical History: Hypertension Additional Past Medical History / Comment(s): ulcerative colitis, chorn's History of Any Multi-Drug Resistant Organisms: None Reported Past Surgical History: Adenoidectomy, Section, Cholecystectomy, Ort hopedic Surgery, Tonsillectomy Past Psychological History: Anxiety Smoking Status: Current every day smoker Past Alcohol Use History: Rare Past Drug Use History: None Reported, Marijuana General Exam - General Exam Comments Initial Comments: PE: CONSTITUTIONAL: No apparent distress, well appearing SKIN: Warm, dry, no jaundice, hives or petechiae EYES: Pupils are equally round, extraocular movements intact without nystagmus, clear conjunctiva, non-icteric sclera HENT: Normocephalic, atraumatic, moist mucus membranes, oropharynx clear without exudates NECK: , Full range of motion, normal appearance, no neck stiffness PULMONARY: Clear to auscultation without wheezes, rhonchi, or rales, normal excursion, no accessory muscle use and no stridor CARDIOVASCULAR: Regular rate, rhythm, normal S1 and S2. No appreciated murmurs, rubs or gallops. Equal 2+ radial pulses bilaterally, equal 2+ dorsalis pedis pulses bilaterally with intact distal perfusion No lower extremity edema GASTROINTESTINAL: Soft, active bowel sounds throughout, non-tender, non- distended, no palpable masses, no rebound or guarding. No hepatosplenomegaly MUSCULOSKELETAL: Extremities have no gross deformity, no edema, redness, or swelling. No calf swelling NEUROLOGIC:_a/o x 3, GCS 15, normal mentation and speech. Moves all extremities x 4 without motor or sensory deficit. Cranial nerves: II (visual ledesma without defects), III, IV and (extraocular movements are intact, pupils are equal with normal reaction to light), V (intact facial sensation and jaw opening), VII (no facial droop), IX and X (normal palate movement, midline uvula, normal voi ce), XI (symmetrical shoulder shrug and lateral head rotation against resistance), XII (midline tongue protrusion). Motor strength is 5/5 in all extremities. No abnormal movements. Normal muscle tone. Sensation to light touch is intact bilaterally. No cerebellar signs ([id number], [id number]-[id number] are normal) PSYCHIATRIC:_normal mood and affect, thought process is clear and linear Limitations: no limitations Course Vital Signs 06/12/24 06/12/24 06/12/24 17:36 18:35 18:53 Temperature 98.8 F Pulse Rate 85 83 83 Respiratory 18 16 16 Rate Blood Pressure 217/135 201/120 189/116 O2 Sat by Pulse 97 95 Oximetry 06/12/24 06/12/24 06/12/24 19:03 19:21 19:52 Temperature Pulse Rate 75 73 Respiratory 19 19 Rate Blood Pressure 175/104 194/127 180/109 O2 Sat by Pulse 94 L 98 Oximetry 06/12/24 21:02 Temperature Pulse Rate 67 Respiratory 18 Rate Blood Pressure 174/97 O2 Sat by Pulse Oximetry EKG Findings - EKG Comments: EKG Findings:: Sinus rhythm, rate 78 bpm, DE interval 139 ms, QRS duration 101 ms, QT/QTc 378/411 ms, left axis deviation, no ST elevations or depressions Medical Decision Making - Medical Decision Making Was pt. sent in by a medical professional or institution (, PA, [facility]IS, urgent care, hospital, or usp...) When possible be specific @ -No Did you speak to anyone other than the patient for history (EMS, parent, family, police, friend...)? What history was obtained from this source @ -No Did you review nursing and triage notes (agree or disagree)? Why? @ -I reviewed and agree with nursing and triage notes Were old charts reviewed (outside hosp., previous admission, EMS record, old EKG, old radiological studies, urgent care reports/EKG's, usp records)? Report findings @ -Medical records reviewed, reviewed note and visit from 06/10/2024 in addition to EKG performed at that point. Today's EKG shows no significant changes from prior Differential Diagnosis (chest pain, altered mental status, abdominal pain women, abdominal pain men, vaginal bleeding, weakness, fever, dyspnea, syncope, headache, dizziness, GI bleed, back pain, seizure, CVA, palpatations, mental health, musculoskeletal)? @ -Differential Headache: Migraine, tension, cluster, central venous thrombosis, intercranial hemorrhage, sinusitis, this is not meant to be an all-inclusive list. In regards to hypertension, differential diagnosis remains broad however top considerations include hypertensive urgency, hypertensive emergency, uncontrolled hypertension, I did consider aortic dissection however patient's back pain does not radiate to her abdomen or to her chest, chest pressure, back pain is described as intermittent and shooting, she has equal pulses in all 4 extremities, for this reason I did not feel CTA indicated at this point. EKG interpreted by me (3pts min.). @ -As above X-rays interpreted by me (1pt min.). @No cardiomegaly, no widened mediastinum, no obvious consolidations CT interpreted by me (1pt min.). @ -No evidence of hemorrhage or occlusion U/S interpreted by me (1pt. min.). @ -None done What testing was considered but not performed or refused? (CT, X-rays, U/S, labs)? Why? @ -None What meds were considered but not given or refused? Why? @Considered aspirin however patient has NSAID allergy I did not feel benefit outweighed risk in the setting of not elevated troponin and no STEMI on EKG Did you discuss the management of the patient with other professionals (jt wiggins i.e. , PA, [facility], lab, RT, psych nurse, social work program coordinator, maintenance data analyst, teacher, bank compliance officer, caseworker)? Give summary @ -No Was smoking cessation discussed for >3mins.? @ -No Was critical care preformed (if so, how long)? @Yes Were there social determinants of health that impacted care today? How? (Homelessness, low income, unemployed, alcoholism, drug addiction, transportation, low edu. Level, literacy, decrease access to med. care, senior living, rehab)? @ -No Was there de-escalation of care discussed even if they declined (Discuss DNR or withdrawal of care, Hospice)? @ -No What co-morbidities impacted this encounter? (DM, HTN, Smoking, COPD, CAD, Cancer, CVA, ARF, Chemo, Hep., AIDS, mental health diagnosis, sleep apnea, morbid obesity)? @ -Hypertension Was patient admitted / discharged? Hospital course, mention meds given and route, prescriptions, significant lab abnormalities, going to OR and other pertinent info. @ -Admission- Patient is a 44-year-old female past medical history of hypertension presenting for persistent hypertension, chest pressure and headache. On my assessment patient is well-appearing and in no acute distress. Blood pressure normal 217 systolic. She is neurologically intact. 2+ radial and DP pulses in all [address], CTA given headache in setting of severe hypertension, now 24 hours out from onset, to assess for signs of subarachnoid hemorrhage however ri very low suspicion for this given lack of neurologic deficits, quality of headache. In addition we will obtain cardiac evaluation. Chest imaging to be decided after D dimer results. Wells score 1.5 for prior PE, otherwise, no signs of DVT, PE is not my #1 diagnosis given quality of chest pain, and heart rate is less than 100, patient has not recently been immobilized or had surgery in the last 3 days or 4 weeks respectively, patient has had a prior PE, no hemoptysis, no malignancy or treatment within the last 6 months. On my reassessment patient endorsed some improvement headache though did persist. Ordered Reglan Benadryl. Repeat blood pressure after 20 mg labetalol 175/104. I reviewed patient's labs, significant for white blood cell count 10.8 however her hemoglobin is also elevated at 16.9 and she appears hemoconcentrated, otherwise sodium 134, potassium 3.3, ordered replacement magnesium low 1.5, ordered replacement troponin within normal limits. Patient's blood pressure did increase again to 194 systolic. Ordered additional 10 mg labetalol. After administration blood pressure decreased to 174/97. Imaging negative for hemorrhage or occlusion. On reassessment patient endorses improvement in headache. I discussed with her admission for observation to further address her blood pressure versus discharge home with close follow-up. Patient would prefer admission. Discussed case with GRETTA Silvestre, who kindly accepts patient for admission. Patient admitted in stable condition. Undiagnosed new problem with uncertain prognosis? @ -No Drug Therapy requiring intensive monitoring for toxicity (Heparin, Nitro, Insulin, Cardizem)? @ -No Were any procedures done? @ -No Diagnosis/symptom? @Hypertensive urgency, headache Acute, or Chronic, or Acute on Chronic? @Acute Uncomplicated (without systemic symptoms) or Complicated (systemic symptoms)? @Complicated Side effects of treatment? @ -No Exacerbation, Progression, or Severe Exacerbation? @ -No Poses a threat to life or bodily function? How? (Chest pain, [place], [place], pneumonia, PE, COPD, DKA, ARF, appy, cholecystitis, CVA, Diverticulitis, Homicidal, Suicidal, threat to staff... and all critical care pts) @ -Yes, if left uncontrolled could lead to end organ damage - Lab Data Result diagrams: 06/12/24 18:32 06/12/24 19:47 Lab Results 06/12/24 06/12/24 06/12/24 Range/Units 18:32 18: 18:55 WBC 10.8 H (3.8-10.6) k/uL RBC 5.45 H (3.80-5.40) m/uL Hgb 16.9 H (11.4-16.0) gm/dL Hct 50.5 H (34.0-46.0) % MCV 92.6 (80.0-100.0) fL MCH 31.0 (25.0-35.0) pg MCHC 33.5 (31.0-37.0) g/dL RDW 14.9 (11.5-15.5) % Plt Count 344 (150-450) k/uL MPV 7.2 Neutrophils % 70 % Lymphocytes % 18 % Monocytes % 8 % Eosinophils % 1 % Basophils % 1 % Neutrophils # 7.6 (1.3-7.7) k/uL Lymphocytes # 2.0 (1.0-4.8) k/uL Monocytes # 0.9 (0-1.0) k/uL Eosinophils # 0.1 (0-0.7) k/uL Basophils # 0.1 (0-0.2) k/uL PT 10.7 (10.0-12.5) sec INR 1.0 (<1.2) APTT 27.1 (22.0-30.0) sec D-Dimer 0.23 (<0.60) mg/L FEU Sodium (137-145) mmol/L Potassium (3.5-5.1) mmol/L Chloride (98-107) mmol/L Carbon Dioxide (22-30) mmol/L Anion Gap mmol/L BUN (7-17) mg/dL Creatinine (0.52-1.04) mg/dL Est GFR (CKD-EPI)AfAm (>60 ml/min/1.73 sqM) Est GFR (CKD-EPI)NonAf (>60 ml/min/1.73 sqM) Glucose (74-99) mg/dL Calcium (8.4-10.2) mg/dL Magnesium (1.6-2.3) mg/dL Total Bilirubin (0.2-1.3) mg/dL AST (14-36) U/L ALT (4-34) U/L Alkaline Phosphatase (38-126) U/L Troponin I <0.012 (0.000-0.034) ng/mL NT-Pro-B Natriuret Pep pg/mL Total Protein (6.3-8.2) g/dL Albumin (3.5-5.0) g/dL 06/12/24 06/12/24 Range/Units 19:47 21:56 WBC (3.8-10.6) k/uL RBC (3.80-5.40) m/uL Hgb (11.4-16.0) gm/dL Hct (34.0-46.0) % MCV (80.0-100.0) fL MCH (25.0-35.0) pg MCHC (31.0-37.0) g/dL RDW (11.5-15.5) % Plt Count (150-450) k/uL MPV Neutrophils % % Lymphocytes % % Monocytes % % Eosinophils % % Basophils % % Neutrophils # (1.3-7.7) k/uL Lymphocytes # (1.0-4.8) k/uL Monocytes # (0-1.0) k/uL Eosinophils # (0-0.7) k/uL Basophils # (0-0.2) k/uL PT (10.0-12.5) sec INR (<1.2) APTT (22.0-30.0) sec D-Dimer (<0.60) mg/L FEU Sodium 134 L (137-145) mmol/L Potassium 3.3 L (3.5-5.1) mmol/L Chloride 104 (98-107) mmol/L Carbon Dioxide 22 (22-30) mmol/L Anion Gap 8 mmol/L BUN 10 (7-17) mg/dL Creatinine 0.69 (0.52-1.04) mg/dL Est GFR (CKD-EPI)AfAm >90 (>60 ml/min/1.73 sqM) Est GFR (CKD-EPI)NonAf >90 (>60 ml/min/1.73 sqM) Glucose 98 (74-99) mg/dL Calcium 8.9 (8.4-10.2) mg/dL Magnesium 1.5 L (1.6-2.3) mg/dL Total Bilirubin 0.6 (0.2-1.3) mg/dL AST 20 (14-36) U/L ALT 21 (4-34) U/L Alkaline Phosphatase 63 (38-126) U/L Troponin I <0.012 (0.000-0.034) ng/mL NT-Pro-B Natriuret Pep 913 pg/mL Total Protein 7.1 (6.3-8.2) g/dL Albumin 4.2 (3.5-5.0) g/dL Disposition Clinical Impression: Hypertensive urgency Disposition: ADMITTED IP TO THIS HOSP Condition: Good
[2024-06-12] MEDS: ONDANSETRON 4 MG/2 ML VIAL IVP STA (18:37)
[2024-06-12] MEDS: MORPHINE SULFATE 4 MG/ML SYRINGE IVP STA (18:38)
[2024-06-12 18:40] LABS: Basophils # (A) 0.1 k/uL (0-0.2); Basophils % (A) 1 %; Eosinophils # (A) 0.1 k/uL (0-0.7); Eosinophils % (A) 1 %; HCT 50.5 % (34.0-46.0); HGB 16.9 gm/dL (11.4-16.0); Lymphocytes % (A) 18 %; MCHC 33.5 g/dL (31.0-37.0); MCV 92.6 fL (80.0-100.0); Mean Platelet Volume 7.2; Monocytes # (A) 0.9 k/uL (0-1.0); Monocytes % (A) 8 %; Neutrophils # (A) 7.6 k/uL (1.3-7.7); Neutrophils % (A) 70 %; Platelet Count 344 k/uL (150-450); RBC 5.45 m/uL (3.80-5.40); RDW 14.9 % (11.5-15.5); WBC 10.8 k/uL (3.8-10.6)
[2024-06-12] MEDS: LABETALOL 5 MG/ML VIAL MDV IVP STA ×2 (18:40→21:40)
[2024-06-12 19:00] LABS: Partial Thromboplastin Time 27.1 sec (22.0-30.0); Prothrombin Time 10.7 sec (10.0-12.5)
--- NOTE | 2024-06-12 19:29 | CT ---
EXAMINATION TYPE: CT brain wo con DATE OF EXAM: 06/12/2024 COMPARISON: None INDICATION: hypertension, headache, question subarachnoid hemorrhage DLP: 1092.4 mGycm, Automated exposure control for dose reduction was used. CONTRAST: None CT of the brain is performed utilizing 3 mm thick sections through the posterior fossa and 3 mm thick sections through the remaining calvarium. Study is performed within 24 hours of arrival to the hosp ital. No abnormal hyperdensity is present to suggest an acute intracranial hemorrhage. Prepontine cistern i s normal. No intraventricular hemorrhage is evident. Sulci appear normal. No mass lesion is evident. No acute infarcts are evident. Ventricles and sulci are appropriate for the patient age. Paranasal sinuses and mastoid air cells within the [id number] are clear. IMPRESSION: 1. No acute intracranial process. Follow up MRI can be performed as clinically indicated. 2. No intracranial hemorrhage radiographically apparent. [facility], Workstation: [facility], 06/12/2024 7:26 PM
--- NOTE | 2024-06-12 19:39 | CT ---
EXAMINATION TYPE: CT angio head neck DATE OF EXAM: 06/12/2024 HISTORY: Hypertension. WILSON. COMPARISON: None CT DLP: 373.4 mGycm. Automated Exposure Control for Dose Reduction was Utilized. TECHNIQUE: CTA scan of the neck is performed with IV Contrast, patient injected with 65ml mL of Isov ue 370, axial images are obtained, coronal and sagittal reformatted images are reviewed. Three-D leroy nstructed images are created on an independent workstation and reviewed. Source images are reviewed. FINDINGS: Carotid/Vascular Structures: There is a 3 vessel arch. Common carotid arteries bifurcate into internal and external carotid arteries without significant kaela w limiting stenosis. Vertebral arteries are codominant. Internal carotid arteries and vertebral arteries are patent to the skull base. Cervical of Goff: Vertebral basilar system appears normal. Posterior cerebral vasculature is unrema rkable. Internal carotid arteries bifurcate normally into A1 and M1 segments. A2 segments are normal. The anterior communicating artery is patent. The right posterior communicating artery is patent. The left posterior communicating artery is patent. IMPRESSION: 1. No flow-limiting stenosis bilateral carotid bifurcations. 2. Normal Voss of Ogff NASCET criteria was used in interpretation of this exam? [facility], Workstation: [facility], 06/12/2024 7:37 PM
[2024-06-12 20:15] LABS: ALT 21 U/L (4-34); AST 20 U/L (14-36); African American GFR (CKD) >90 (>60 ml/min/1.73 sqM); Albumin 4.2 g/dL (3.5-5.0); Alkaline Phosphatase 63 U/L (38-126); Anion Gap 8 mmol/L; Blood Urea Nitrogen 10 mg/dL (7-17); Calcium 8.9 mg/dL (8.4-10.2); Carbon Dioxide 22 mmol/L (22-30); Chloride 104 mmol/L (98-107); Glucose 98 mg/dL (74-99); Magnesium 1.5 mg/dL (1.6-2.3); Non-African American GFR(CKD) >90 (>60 ml/min/1.73 sqM); Potassium 3.3 mmol/L (3.5-5.1); Sodium 134 mmol/L (137-145); Total Bilirubin 0.6 mg/dL (0.2-1.3); Total Protein 7.1 g/dL (6.3-8.2)
[2024-06-12 20:21] LABS: NT-Pro-B-Type Natriuretic Pept 913 pg/mL
[2024-06-12] MEDS: ACETAMINOPHEN TAB 500 MG TAB PO STA (21:47)
[2024-06-12] MEDS: METOCLOPRAMIDE 5 MG/ML 2 ML VIAL IVP STA (21:48)
[2024-06-12] MEDS: diphenhydrAMINE 50 MG/ML 1 ML VIAL IVP STA (21:48)
[2024-06-12] MEDS: MAGNESIUM SULFATE-D5W PMX 1 GM in DEXTROSE/WATER 1 100ML.BAG IVPB SCH (21:48)
[2024-06-12] MEDS: POTASSIUM BICARBONATE/CIT AC 20 MEQ TABLET.EFF PO ONE (22:02)
[2024-06-12] MEDS ORDERED: MAG HYDROX/AL HYDROX/SIMETH 30 ML CUP PO PRN (22:09)
[2024-06-12] MEDS ORDERED: ALPRAZolam 0.25 MG TAB PO PRN (22:09)
[2024-06-12] MEDS ORDERED: PROCHLORPERAZINE 5 MG TAB PO PRN (22:09)
[2024-06-12] MEDS ORDERED: CALCIUM CARBONATE 500 MG CHEWABLE PO PRN (22:09)
[2024-06-12] MEDS ORDERED: HYDROcodone/APAP 5-325MG 1 EACH TAB PO PRN (22:09)
[2024-06-12] MEDS ORDERED: NALOXONE 0.4 MG/ML 1 ML VIAL IV PRN (22:09)
--- NOTE | 2024-06-13 00:56 | XR ---
EXAMINATION TYPE: XR chest 2V DATE OF EXAM: 06/13/2024 COMPARISON: Chest x-ray June 10, 2024 HISTORY: Chest pain TECHNIQUE: Frontal and lateral views of the chest are obtained. FINDINGS: Overlying EKG leads and bra strap on current study. There is no suspicious new focal air sp nicole opacity, pleural effusion, or pneumothorax seen. The cardiac silhouette size remains within norm al limits. The osseous structures are intact. IMPRESSION: No acute process. No significant change from prior. [facility], , 06/13/2024 12:54 AM
[2024-06-13] MEDS: FAMOTIDINE 20 MG TAB PO SCH (08:14)
[2024-06-13] MEDS: lisinopriL 20 MG TAB PO SCH (08:15)
[2024-06-13] MEDS: ACETAMINOPHEN TAB 325 MG TAB PO PRN (09:27)
[2024-06-13] MEDS: hydroCHLOROthiazide 25 MG TAB PO SCH ×2 (09:29→11:14)
--- NOTE | 2024-06-13 09:46 | P.CRDCN ---
History of Present Illness Consult date: 06/13/24 Reason for Consult (text): Hypertensive urgency History of present illness: This is a 44-year-old female with past medical history of hypertension and Crohn's disease. 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 Patient was recently diagnosed with hypertension about 6 months ago when she was having a hysterectomy and she was started on lisinopril 10 mg daily. She has noted that over the past 1 month, her blood pressure has been labile and she had contacted her primary care doctor, Dr. Garvin. She was advised to increase lisinopril to 40 mg daily which she did on Sunday but it did not seem to help her blood pressure. She came into the emergency center on 06/10 and her blood pressure at that time was 193/92. Patient was started on hydrochlorothiazide 25 mg daily and discharged home. She states she started taking hydrochlorothiazide along with the lisinopril and her blood pressure was again high. There is family medical history of coronary artery disease in her mom. 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 She drinks social leave with 1-2 times per week. She does not find that the hypertension is related to alcohol use. Her blood pressure at this time is 177/102, heart rate 71, pulse ox 95% on room air. Patient received 1 do se of IV labetalol in the ER. Potassium has been replaced. EKG: Sinus rhythm with incomplete right bundle branch block, x 2 Chest x-ray: No acute process CAT scan of the brain revealed Laboratory studies: WBC 10.8, hemoglobin 16.9. Sodium 134, potassium 3.3, BUN 10 creatinine 0.69. Troponin negative x 3. proBNP 913. Home cardiac medications: Hydrochlorothiazide 25 mg daily and lisinopril 40 mg daily Review Of Systems: At the time of my exam: CONSTITUTIONAL: Denies fever or chills. HEENT: Denies blurred vision, vision changes, or eye pain. Denies hemoptysis CARDIOVASCULAR: Denies chest pain. Denies orthopnea. Denies PND. Denies palpitations RESPIRATORY: Denies shortness of breath. GASTROINTESTINAL: Denies abdominal pain. Denies nausea or vomiting. HEMATOLOGIC: Denies bleeding disorders. GENITOURINARY: Denies any blood in urine. SKIN: Denies puritis. Denies rash. Physical examination: Gen: This is a 44-year-old female in no acute distress VS: reviewed HEENT: Head is atraumatic, normocephalic. Pupils equal, round. Sclerae is anicteric. NECK: Supple. No JVD. LUNGS: Clear to auscultation. No wheezes or rhonchi. No intercostal retractions. HEART: Regular rate and rhythm. No murmur. ABDOMEN: Soft No tenderness. EXTREMITIES: No pedal edema. No calf tenderness. NEUROLOGICAL: Patient is awake, alert and oriented x3. Assessment: Hypertensive urgency History of Crohn's disease Plan: Resume patient's home cardiac medications: Lisinopril 40 mg daily and hydrochlorothiazide 25 mg daily Monitor patient's blood pressure and if stable by this afternoon, patient would be cleared for discharge. However, if blood pressure remains elevated, add amlodipine. Obtain 2-D echocardiogram and Doppler study to assess cardiac structure and function Further recommendations to follow based upon clinical course Thank you kindly for this consultation. Nurse practitioner note has been reviewed, I agree with documented findings and plan of care. Patient was seen and examined. Past Medical History Past Medical History: Hypertension Additional Past Medical History / Comment(s): ulcerative colitis, chorn's History of Any Multi-Drug Resistant Organisms: None Reported Past Surgical History: Section, Cholecystectomy, Hysterectomy, Orthopedic Surgery, Tonsillectomy Past Psychological History: Anxiety Smoking Status: Current every day smoker Past Alcohol Use History: Rare Past Drug Use History: None Reported, Marijuana Medications and Allergies Home Medications Medication Instructions Recorded Confirmed Type hydroCHLOROthiazide 25 mg PO DAILY #20 tablet 06/11/24 06/13/24 Rx Dicyclomine (Unknown Dose) 1 cap PO BID 06/13/24 06/13/24 History Mesalamine [Pentasa] 1 dose PO DIRECTED 06/13/24 06/13/24 History Ondansetron [Zofran] 4 mg PO Q12HR PRN 06/13/24 06/13/24 History Questran (Unknown) 1 dose PO DIRECTED 06/13/24 06/13/24 History Allergies Allergy/AdvReac Type Severity Reaction Status Date / Time NSAIDS (Non-Steroidal Allergy Swelling Verified 06/13/24 08:28 Anti-Inflamma Physical Exam Vitals: Vital Signs Temp Pulse Pulse Resp BP BP Pulse Ox 06/13/24 07:45 98.2 F 71 16 177/102 95 06/13/24 07:00 69 19 148/80 99 06/13/24 02:00 67 18 145/81 95 06/13/24 00:00 65 19 138/77 97 06/12/24 21:02 67 18 174/97 06/12/24 19:52 73 19 180/109 98 06/12/24 19:21 75 19 194/127 94 L 06/12/24 19:03 175/104 06/12/24 18:53 83 16 189/116 06/12/24 18:35 83 16 201/120 95 06/12/24 17:36 98.8 F 85 18 217/135 97 Intake and Output 06/12/24 06/13/24 06/13/24 22:59 06:59 14:59 Other: Weight 76.204 kg 76.204 kg Results 06/12/24 18:32 06/12/24 19:47 Cardiac Enzymes 06/12/24 06/12/24 06/12/24 Range/Units 18:55 19:47 21:56 AST 20 (14-36) U/L Troponin I <0.012 <0.012 (0.000-0.034) ng/mL Coagulation 06/12/24 Range/Units 18:32 PT 10.7 (10.0-12.5) sec APTT 27.1 (22.0-30.0) sec CBC 06/12/24 Range/Units 18:32 WBC 10.8 H (3.8-10.6) k/uL RBC 5.45 H (3.80-5.40) m/uL Hgb 16.9 H (11.4-16.0) gm/dL Hct 50.5 H (34.0-46.0) % Plt Count 344 (150-450) k/uL Comprehensive Metabolic Panel 06/12/24 Range/Units 19:47 Sodium 134 L (137-145) mmol/L Potassium 3.3 L (3.5-5.1) mmol/L Chloride 104 (98-107) mmol/L Carbon Dioxide 22 (22-30) mmol/L BUN 10 (7-17) mg/dL Creatinine 0.69 (0.52-1.04) mg/dL Glucose 98 (74-99) mg/dL Calcium 8.9 (8.4-10.2) mg/dL AST 20 (14-36) U/L ALT 21 (4-34) U/L Alkaline Phosphatase 63 (38-126) U/L Total Protein 7.1 (6.3-8.2) g/dL Albumin 4.2 (3.5-5.0) g/dL Current Medications Generic Name Dose Route Start Last Admin Trade Name Freq PRN Reason Stop Dose Admin Acetaminophen 650 mg 06/12/24 22:09 06/13/24 09:27 Acetaminophen Tab 325 Mg Tab PO 650 mg Q6HR PRN Administration Mild Pain or Fever > 100.5 Hydrocodone Bitart/Acetaminophen 1 each 06/12/24 22:09 Hydrocodone/Apap 5-325mg 1 Each Tab PO Q6HR PRN Moderate Pain (Scale 4 to 6) Al Hydroxide/Mg Hydroxide 15 ml 06/12/24 22:09 Mag Hydrox/Al Hydrox/Simeth 30 Ml Cup PO Q6HR PRN Indigestion Alprazolam 0.25 mg 06/12/24 22:09 Alprazolam 0.25 Mg Tab PO Q6HR PRN Anxiety Calcium Carbonate/Glycine 1,000 mg 06/12/24 22:09 Calcium Carbonate 500 Mg Chewable PO Q4HR PRN Dyspepsia Famotidine 20 mg 06/13/24 09:00 06/13/24 08:14 Famotidine 20 Mg Tab PO 20 mg BID MARILIN Administration Hydrochlorothiazide 25 mg 06/13/24 09:00 06/13/24 09:29 Hydrochlorothiazide 25 Mg Tab PO 25 mg DAILY MARILIN Administration Lisinopril 40 mg 06/13/24 09:00 06/13/24 08:15 Lisinopril 20 Mg Tab PO 40 mg DAILY MARILIN Administration Naloxone HCl 0.2 mg 06/12/24 22:09 Naloxone 0.4 Mg/Ml 1 Ml Vial IV Q2M PRN Opioid Reversal Prochlorperazine Maleate 5 mg 06/12/24 22:09 Prochlorperazine 5 Mg Tab PO Q8HR PRN Nausea And Vomiting Intake and Output 06/12/24 06/13/24 06/13/24 22:59 06:59 14:59 Other: Weight 76.204 kg 76.204 kg Patient Weight 06/14/24 06:59 Weight 76.204 kg 06/12/24 18:32 06/12/24 19:47
[2024-06-13] MEDS: NICOTINE 14MG/24HR PATCH TRANSDERM SCH (11:20)
[2024-06-13] MEDS: ENOXAPARIN 40 MG/0.4 ML SYRINGE SQ SCH (11:20)
[2024-06-13] MEDS: DICYCLOMINE 10 MG CAP PO SCH (12:37)
[2024-06-13 13:08] LABS: African American GFR (CKD) >90 (>60 ml/min/1.73 sqM); Anion Gap 4 mmol/L; Blood Urea Nitrogen 11 mg/dL (7-17); Calcium 9.8 mg/dL (8.4-10.2); Carbon Dioxide 27 mmol/L (22-30); Chloride 102 mmol/L (98-107); Glucose 97 mg/dL (74-99); Non-African American GFR(CKD) 80 (>60 ml/min/1.73 sqM); Potassium 4.1 mmol/L (3.5-5.1); Sodium 133 mmol/L (137-145)
[2024-06-13 16:33] LABS: Appearance,Urine Cloudy (Clear); Bacteria,Urine Rare /hpf; Bilirubin,Urine Negative (Negative); Blood,Urine Small (Negative); Color,Urine Light Yellow; Glucose,Urine (UA) Negative (Negative); Ketones,Urine Negative (Negative); Leukocyte Esterase,Urine Negative (Negative); Mucus,Urine Rare /hpf; Nitrite,Urine Negative (Negative); Protein,Urine Negative (Negative); RBC,Urine 4 /hpf (0-5); Squamous Epithelial Cell,Urine 15 /hpf (0-4); Urobilinogen,Urine <2.0 mg/dL (<2.0); WBC,Urine 2 /hpf (0-5)
--- NOTE | 2024-06-13 17:18 | CA ---
Transthoracic Echo Report Name: Nilam Galvan Age: 44 Gender: F : 1980 Exam Date: 06/13/2024 10:46 Exam Location: [facility] Ht (in): 63 Wt (lb): 168 Ordering Physician: Casandra Roy Attending/Referring Phys: [id number], Manuela Metal Burrer Hailey Muhammad RDCS Procedure CPT: Indications: LVF Cardiac Hx: Technical Quality: Fair Contrast 1: Total Dose (mL): Contrast 2: Total Dose (mL): MEASUREMENTS (Male / Female) Normal Values 2D ECHO LV Diastolic Diameter PLAX 4.2 cm 4.2 - 5.9 / 3.9 - 5.3 cm LV Systolic Diameter PLAX 2.9 cm IVS Diastolic Thickness 1.2 cm 0.6 - 1.0 / 0.6 - 0.9 cm LVPW Diastolic Thickness 1.1 cm 0.6 - 1.0 / 0.6 - 0.9 cm LV Relative Wall Thickness 0.5 LA Systolic Diameter LX 3.2 cm 3.0 - 4.0 / 2.7 - 3.8 cm LV Diastolic Volume MOD 2C 108.7 cm??? LV Systolic Volume MOD 2C 51.8 cm??? LV Ejection Fraction MOD 2C 52.4 % LV Cardiac Index MOD 2C 1983.6 cm???/min???m??? LV Diastolic Length 2C 8.3 cm LV Systolic Length 2C 6.9 cm LA Volume 43.7 cm??? 18 - 58 / 22 - 52 cm??? LA Volume Index 23.4 cm???/m??? 16 - 28 cm???/m??? M-MODE Aortic Root Diameter MM 2.5 cm AV Cusp Separation MM 2.2 cm DOPPLER AV Peak Velocity 198.3 cm/s AV Peak Gradient 15.7 mmHg AV Mean Velocity 109.9 cm/s AV Mean Gradient 5.8 mmHg AV Velocity Time Integral 31.4 cm MV Area PHT 2.2 cm??? Mitral E Point Velocity 66.9 cm/s Mitral A Point Velocity 77.7 cm/s Mitral E to A Ratio 0.9 MV Deceleration Time 351.2 ms FINDINGS Left Ventricle Left ventricular ejection fraction is estimated at 55-60 %. Left ventricular cavity size normal. Mildly increased septal wall thickness. Mildly increased posterior wall thickness. Right Ventricle Normal right ventricular size and function. Unable to estimate the right ventricular systolic pressure. Right Atrium Normal right atrial size. No right atrial thrombus or mass seen. Left Atrium Normal left atrial size. No left atrial thrombus or mass present. Mitral Valve Structurally normal mitral valve. No mitral stenosis. No evidence for mitral valve prolapse. Trace mitral regurgitation. Aortic Valve Trileaflet aortic valve. No aortic valve stenosis or regurgitation. Tricuspid Valve Structurally normal tricuspid valve. No tricuspid stenosis, regurgitation or prolapse. Pulmonic Valve Structurally normal pulmonic valve. Trace pulmonic regurgitation. Pericardium No pericardial or pleural effusion. Aorta Normal size aortic root and proximal ascending aorta. CONCLUSIONS Normal LV function Previewed by: Dr. Mariano Dempsey MD (Electronically Signed) Final Date: 13 June 2024 17:17
--- NOTE | 2024-06-13 17:18 | P.HPIM ---
History of Present Illness H&P Date: 06/13/24 Chief Complaint: Uncontrolled blood pressure This is a pleasant 44-year-old patient of Dr. Charly Villasenor. Patient had undergone hysterectomy in December of this year. Since then she developed high blood pressure. Was started on lisinopril. Subsequently blood pressure been running around 140s. Then her blood pressure started running high and she presented to the ER 2 days ago. She was discharged home and hydrochlorothiazide added. Blood pressure continued to run high. Also patient started having some chest discomfort and headaches. Also nasal congestion. Patient is a smoker. Denies taking any decongestants. In the ER yesterday evening patient was given 20 mg of labetalol and another 10 mg of labetalol was repeated.. Patient also complaining of some right upper quadrant pain going to the back. At baseline patient is anyway from 5-10 bowel movements a day. Loose and mushy from underlying Crohn's disease. She does follow with Dr. hodges at [facility]. Denies nausea vomiting or fever. Review of systems: GEN.: Tired EYES: None HEENT: [Nasal congestion NECK: None RESPIRATORY: None CARDIOVASCULAR: As above GASTROINTESTINAL: None GENITOURINARY: None MUSCULOSKELETAL: None LYMPHATICS: None HEMATOLOGICAL: None PSYCHIATRY: None NEUROLOGICAL: None Social history: Lives with her significant other. Has 2 children at home. 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 Does not average 1 joint of marijuana a day. Smokes less than a pack a day for close to 34 years. Physical examination: VITAL SIGNS: 98.8, 85, 18, 217 x 135, 97% room air upon presentation GENERAL: BMI 29.8, laying in bed awake somewhat congested sounding. EYES: Pupils equal. Conjunctiva marbin l. HEENT: External appearance of nose and ears normal, oral cavity grossly normal. NECK: JVD not raised; masses not palpable. HEART: First and second heart sounds are normal; no edema. LUNGS: Respiratory rate increased, some wheezing. ABDOMEN: Soft, nontender, liver spleen not palpable, no masses palpable. PSYCH: Alert and oriented x3; mood and affect marbin l. MUSCULOSKELETAL:No Clubbing/cyanosis;muscles-grossly intact NEUROLOGICAL: Cranial nerves grossly intact; no facial asymmetry, power and sensation grossly intact. LYMPHATICS: No lymph nodes palpable in the axilla and neck INVESTIGATIONS, reviewed in the clinical context: June 12, 2024: Sodium 134 potassium 3.3 BUN 10 creatinine 0.69 Troponin I less than 0.012 x 2 EKG tracing personally reviewed by me-normal sinus rhythm with some P pulmonale Chest x-ray film personally reviewed by me-some hyperinflation CT angio head and neck: Unremarkable CT scan of the brain: Unremarkable Assessment plan: -Accelerated hypertension. Patient had hysterectomy done in February of this year. Since then started lisinopril. Blood pressure be running high of more recently. Seen in the ER 2 days ago added hydrochlorothiazide. Now presents with a systolic pressure blood pressure above 217 with some headache and some chest pain. No focal symptoms. Patient seen by cardiology this morning.-Home medications were to be resumed. Per cardiology -Right upper quadrant pain. In a patient with known Crohn's disease. CT scan abdomen pelvis with and without contrast -Some COPD exacerbation in a current smoker DuoNeb. Nebulized Pulmicort -Inflammatory bowel disease, chronic Baseline anywhere from 5-10 loose bowel movements a day. Resume home dose of mesalamine. Bentyl. After dosages confirmed. -Chronic nicotine dependence cigarette smoker Nicotine patch -Marijuana use, recreational -Upper respiratory tract infection viral Claritin 5 mg twice daily -Full code Past Medical History Past Medical History: Hypertension Additional Past Medical History / Comment(s): ulcerative colitis, chorn's History of Any Multi-Drug Resistant Organisms: None Reported Past Surgical History: Section, Cholecystectomy, Hysterectomy, Orthopedic Surgery, Tonsillectomy Past Psychological History: Anxiety Smoking Status: Current every day smoker Past Alcohol Use History: Rare Past Drug Use History: None Reported, Marijuana Medications and Allergies Home Medications Medication Instructions Recorded Confirmed Type hydroCHLOROthiazide 25 mg PO DAILY #20 tablet 06/11/24 06/13/24 Rx Dicyclomine [Bentyl] 10 mg PO BID 06/13/24 06/13/24 History Mesalamine [Pentasa] 1 dose PO DIRECTED 06/13/24 06/13/24 History Ondansetron [Zofran] 4 mg PO Q12HR PRN 06/13/24 06/13/24 History Questran (Unknown) 1 dose PO DIRECTED PRN 06/13/24 06/13/24 History Allergies Allergy/AdvReac Type Severity Reaction Status Date / Time NSAIDS (Non-Steroidal Allergy Swelling Verified 06/13/24 08:28 Anti-Inflamma Physical Exam Vitals: Vital Signs Temp Pulse Pulse Resp BP BP Pulse Ox 06/13/24 07:45 98.2 F 71 16 177/102 95 06/13/24 07:00 69 19 148/80 99 06/13/24 02:00 67 18 145/81 95 06/13/24 00:00 65 19 138/77 97 06/12/24 21:02 67 18 174/97 06/12/24 19:52 73 19 180/109 98 06/12/24 19:21 75 19 194/127 94 L 06/12/24 19:03 175/104 06/12/24 18:53 83 16 189/116 06/12/24 18:35 83 16 201/120 95 06/12/24 17:36 98.8 F 85 18 217/135 97 Intake and Output 06/12/24 06/13/24 06/13/24 22:59 06:59 14:59 Other: Weight 76.204 kg 76.204 kg Results CBC & Chem 7: 06/12/24 18:32 06/13/24 12:26 Labs: Abnormal Lab Results - Last 24 Hours (Table) 06/12/24 06/12/24 Range/Units 18:32 19:47 WBC 10.8 H (3.8-10.6) k/uL RBC 5.45 H (3.80-5.40) m/uL Hgb 16.9 H (11.4-16.0) gm/dL Hct 50.5 H (34.0-46.0) % Sodium 134 L (137-145) mmol/L Potassium 3.3 L (3.5-5.1) mmol/L Magnesium 1.5 L (1.6-2.3) mg/dL
[2024-06-13] MEDS: IPRATROPIUM-ALBUTEROL 3 ML NEB INHALATION SCH (19:44)
[2024-06-13] MEDS: BUDESONIDE 1 MG/2 ML NEBU INHALATION SCH (19:49)
[2024-06-13] MEDS: IOPAMIDOL CONTRAST (ORAL USE) VIAL PO PRN (20:14)
[2024-06-13] MEDS: LORATADINE 10 MG TAB PO SCH (22:18)
--- NOTE | 2024-06-13 23:28 | CT ---
EXAMINATION TYPE: CT abdomen pelvis wo/w con DATE OF EXAM: 06/13/2024 HISTORY: RUQ abdominal pain. prior in pacs CT DLP: 900.3mGycm Automated Exposure Control for Dose Reduction was Utilized. CONTRAST: CT scan of the abdomen and pelvis is performed with oral and without and with IV Contrast, patient in jected with 100 mL of Isovue 300. COMPARISON: Prior CT abdomen and pelvis October 18, 2023 FINDINGS: LUNG BASES: No significant abnormality is appreciated. LIVER/GB: Cholecystectomy clips are redemonstrated. No new biliary dilatation. PANCREAS: No significant abnormality is seen. SPLEEN: No significant abnormality is seen. ADRENALS: No significant abnormality is seen. KIDNEYS: Suspect nonobstructing 2 mm calculus axial series 3 image 29. There is symmetric cortical me dullary uptake and excretion without hydronephrosis seen bilaterally BOWEL: The oral contrast reaches level of sigmoid colon. No abnormal small or large bowel dilatation. Terminal ileum appears within normal limits. Normal-appearing appendix from the cecum is identified UTERUS/ADNEXA: Retroflexed. LYMPH NODES: No greater than 1cm abdominal or pelvic lymph nodes are appreciated. OSSEOUS STRUCTURES: No significant abnormality is seen. OTHER: No significant additional abnormality is seen. IMPRESSION: No significant new or acute finding is seen to account for patient's clinical symptoms of right upper quadrant abdominal pain. [facility], , 06/13/2024 11:26 PM
--- NOTE | 2024-06-14 09:15 | P.PN ---
Subjective Progress Note Date: 06/14/24 Principal diagnosis: HTN The patient is a pleasant 44-year-old female patient was admitted to the hospital with hypertension emergency and she is known to have also chronic disease. She has been compliant with her medications but not compliant with low-sodium diet. She underwent an echo which revealed normal LV systolic function June 14, 2024 The patient was seen and evaluated this morning which she is asymptomatic. The pressure has improved on the current dose of lisinopril and HCTZ. The echo showed normal LV systolic function. She is not having any symptoms of chest pain or chest discomfort or shortness of breath or any other cardiovascular symptoms. Examination is remarkable for regular rhythm with a soft systolic murmur at the right upper sternal border with clear breathing sounds bilaterally and no edema was noted Assessment Hypertension emergency Chronic disease Plan Continue the current medical regimen The patient can be discharged from the cardiovascular standpoint of view Objective - Vital Signs Vital signs: Vital Signs Temp 98.3 F 06/14/24 07:00 Pulse 69 06/14/24 07:00 Resp 16 06/14/24 07:00 BP 143/81 06/14/24 07:00 Pulse Ox 99 06/14/24 07:00 FiO2 Intake & Output 06/13/24 06/14/24 06/14/24 18:59 06:59 18:59 Intake Total 1135 Balance 1135 Weight 76.204 kg Intake: Oral 1135 Other: # Voids 1 2 - Labs CBC & Chem 7: 06/12/24 18:32 06/13/24 12:26 Labs: Abnormal Lab Results - Last 24 Hours (Table) 06/13/24 06/13/24 Range/Units 09:28 12:26 Sodium 133 L (137-145) mmol/L Urine Appearance Cloudy H (Clear) Urine Blood Small H (Negative) Ur Squamous Epith Cells 15 H (0-4) /hpf Urine Bacteria Rare H (None) /hpf Urine Mucus Rare H (None) /hpf
[2024-06-14] MEDS: ACETAMINOPHEN TAB 500 MG TAB PO STA (12:06)
[2024-06-14] MEDS: LORazepam 1 MG TAB PO STA (12:06)
[2024-06-14] MEDS: NAPROXEN 250 MG TAB PO STA (12:06)
[2024-06-14] MEDS: diphenhydrAMINE 50 MG/ML 1 ML VIAL IVP STA ×2 (13:12→13:14)
[2024-06-14 15:11] VITALS: BP 128/79; PULSE 100; RESP 17; TEMP 98
[2024-06-14] MEDS: EPINEPHrine - Anaphylaxis Kit (1 mg/mL) IM STA (17:54)
--- NOTE | 2024-06-15 09:44 | P.DS ---
Providers Date of admission: 06/12/24 22:09 Expected date of discharge: 06/14/24 Attending physician: Lex Trevizo Consults: 06/12/24 22:09 Consult Physician Routine Consulting Provider: Puma Liu Consult Reason/Comments: Hypertension Do you want consulting provider notified?: Yes, Notify in am Primary care physician: Charly Villasenor [facility] Course: Chief Complaint: Uncontrolled blood pressure This is a pleasant 44-year-old patient of Dr. Charly Villasenor. Patient had undergone hysterectomy in December of this year. Since then she developed high blood pressure. Was started on lisinopril. Subsequently blood pressure been running around 140s. Then her blood pressure started running high and she presented to the ER 2 days ago. She was discharged home and hydrochlorothiazide added. Blood pressure continued to run high. Also patient started having some chest discomfort and headaches. Also nasal congestion. Patient is a smoker. Denies taking any decongestants. In the ER yesterday evening patient was given 20 mg of labetalol and another 10 mg of labetalol was repeated.. Patient also complaining of some right upper quadrant pain going to the back. At baseline patient is anyway from 5-10 bowel movements a day. Loose and mushy from underlying Crohn's disease. She does follow with Dr. hodges at [facility]. Denies nausea vomiting or fever. May 14: Patient blood pressure was well-controlled this morning. Having significant headache. [No nausea vomiting. No visual changes. No focal changes.] Avoid narcotics I told the patient we will give a dose of naproxen, Ativan, Pepcid. Patient did get some lip swelling responded very well to Benadryl. Later afternoon patient back to her cell. CT scan abdomen un remarkable. No further abdominal pain. Discussion and discharge planning more than 35 minutes Social history: Lives with her significant other. Has 2 children at home. 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 Does not average 1 joint of marijuana a day. Smokes less than a pack a day for close to 34 years. Blood pressure remains well-controlled. Told to avoid smoking. Short course of Claritin and nasal decongestion better. Physical examination: VITAL SIGNS: T8, 100, 17, 128/79, 100% room air GENERAL: BMI 29.8, congestion better EYES: Pupils equal. Conjunctiva marbin l. HEENT: External appearance of nose and ears normal, oral cavity grossly normal. NECK: JVD not raised; masses not palpable. HEART: First and second heart sounds are normal; no edema. LUNGS: Respiratory rate increased, some wheezing. ABDOMEN: Soft, nontender, liver spleen not palpable, no masses palpable. PSYCH: Alert and oriented x3; mood and affect marbin l. MUSCULOSKELETAL:No Clubbing/cyanosis;muscles-grossly intact INVESTIGATIONS, reviewed in the clinical context: June 12, 2024: Sodium 134 potassium 3.3 BUN 10 creatinine 0.69 Troponin I less than 0.012 x 2 EKG tracing personally reviewed by me-normal sinus rhythm with some P pulmonale Chest x-ray film personally reviewed by me-some hyperinflation CT angio head and neck: Unremarkable CT scan of the brain: Unremarkable Assessment plan: -Accelerated hypertension.: Improved Patient had hysterectomy done in February of this year. Since then started lisinopril. Blood pressure be running high of more recently. Seen in the ER 2 days ago added hydrochlorothiazide. Now presents with a systolic pressure blood pressure above 217 with some headache and some chest pain. No focal symptoms. Patient seen by cardiology this morning.-Home medications were to be resumed. Per cardiology Discharged on Zestoretic 20/12.51 tablet twice daily -Right upper quadrant pain. In a patient with known Crohn's disease. CT scan abdomen pelvis with and without contrast: Unremarkable -Some COPD exacerbation in a current smoker Zenaida. Nebulized Pulmicort DC on Symbicort 80/4.51 puff twice daily. Albuterol as needed -Inflammatory bowel disease, chronic Baseline anywhere from 5-10 loose bowel movements a day. Resume home educations -Chronic nicotine dependence cigarette smoker Nicotine patch -Marijuana use, recreational -Upper respiratory tract infection viral Claritin 5 mg twice daily -Full code Disposition: Home Past Medical History Past Medical History: Hypertension Additional Past Medical History / Comment(s): ulcerative colitis, chorn's History of Any Multi-Drug Resistant Organisms: None Reported Past Surgical History: Section, Cholecystectomy, Hysterectomy, Orthopedic Surgery, Tonsillectomy Past Psychological History: Anxiety Smoking Status: Current every day smoker Past Alcohol Use History: Rare Past Drug Use History: None Reported, Marijuana Plan - Discharge Summary Discharge Rx Participant: No New Discharge Prescriptions: New Albuterol Sulfate [Albuterol Sulfate Hfa] 1 puff PO Q4-6H #8.5 gm Budesonide/Formoterol Fumarate [Symbicort 80-4.5 Mcg Inhaler] 1 puff INHALATION BID #10.2 gm Acetaminophen Tab [Tylenol] 650 mg PO Q6HR PRN tab PRN Reason: Mild Pain Or Fever > 100.5 Lisinopril-Hctz 20-12.5 mg [Zestoretic 20-12.5] 1 tab PO BID #60 tab Loratadine [Claritin] 5 mg PO Q12HR #10 tab Nicotine 14Mg/24Hr Patch [Habitrol] 1 patch TRANSDERM DAILY #30 patch Continue Mesalamine [Pentasa] 1 dose PO DIRECTED Ondansetron [Zofran] 4 mg PO Q12HR PRN PRN Reason: Nausea And Vomiting hydroCHLOROthiazide 25 mg PO DAILY #20 tablet Questran (Unknown) 1 dose PO DIRECTED PRN PRN Reason: Diarrhea Dicyclomine [Bentyl] 10 mg PO BID Discharge Medication List hydroCHLOROthiazide 25 mg PO DAILY #20 tablet 06/11/24 [Rx] Dicyclomine [Bentyl] 10 mg PO BID 06/13/24 [History] Mesalamine [Pentasa] 1 dose PO DIRECTED 06/13/24 [History] Ondansetron [Zofran] 4 mg PO Q12HR PRN 06/13/24 [History] Questran (Unknown) 1 dose PO DIRECTED PRN 06/13/24 [History] Acetaminophen Tab [Tylenol] 650 mg PO Q6HR PRN tab 06/14/24 [Rx] Albuterol Sulfate [Albuterol Sulfate Hfa] 1 puff PO Q4-6H #8.5 gm 06/14/24 [Rx] Budesonide/Formoterol Fumarate [Symbicort 80-4.5 Mcg Inhaler] 1 puff INHALATION BID #10.2 gm 06/14/24 [Rx] Lisinopril-Hctz 20-12.5 mg [Zestoretic 20-12.5] 1 tab PO BID #60 tab 06/14/24 [Rx] Loratadine [Claritin] 5 mg PO Q12HR #10 tab 06/14/24 [Rx] Nicotine 14Mg/24Hr Patch [Habitrol] 1 patch TRANSDERM DAILY #30 patch 06/14/24 [Rx] Follow up Appointment(s)/Referral(s): Charly Villasenor MD [Primary Care Provider] - 1-2 days Patient Instructions/Handouts: Hypertensive Crisis (DC)
== END 2024-06-14 18:40 ==
LOC: EC 17:35 → 6NMEDSUR 22:09
PROVIDERS: ADMIT Hospitalist; ATTEND Hospitalist
DX: I16.1 Hypertensive emergency (principal); I10 Essential (primary) hypertension; K50.90 Crohn's disease, unspecified, without complications; R10.11 Right upper quadrant pain; J44.1 Chronic obstructive pulmonary disease with (acute) exacerbation; F41.9 Anxiety disorder, unspecified; I45.10 Unspecified right bundle-branch block; F17.210 Nicotine dependence, cigarettes, uncomplicated; Z90.710 Acquired absence of both cervix and uterus; Z82.49 Family history of ischemic heart disease and other diseases of the circulatory system; Z79.899 Other long term (current) drug therapy
CPT/HCPCS: 96376; 96372 ×2; 96365; 96366; 96375; 99285; 36415; 94640 ×2; 94760; 93005; 93306; 85379; 83880; 80053; 80048; 83735; 84484; 85025; 85610; 85730; 81001; 71046; 70496; 70450; 70498; 74178; G0378 ×3; S4990; J2270; J1200 ×2; J2765; J2405; J1650 ×2; J3475; Q9967 ×2; J1920